=== PATIENT | male | born 1970 | race African-American/Black ===

== ENCOUNTER 2019-02-02 15:57 | Emergency (ER) | payer MEDICAID, SELFPAY ==
[~2019-02-02] VITALS: Ht 172.7 cm; Wt 72.0 kg
--- NOTE | 2019-02-02 16:00 | NUR ---
48 YR OLD MALE ARRIVED VIA EMS WITH C/O ABD PAIN. PT WITH HX OF ULCERS. "HAD SPICY FOOD FOR LUNCH TODAY" PT ARRIVES WITH IV IN RAC. PAIN 05/22.
[2019-02-02] MEDS ORDERED: FAMOTIDINE 20 MG/2 ML ONE (16:22)
[2019-02-02] MEDS ORDERED: MORPHINE SULFATE 4 MG/ML, 1ML ONE (16:22)
--- NOTE | 2019-02-02 16:29 | NUR ---
PT MEDICATED ORDERED. PT UPDATED ON POC. NO OTHER NEEDS EXPRESSED AT THIS TIME.
[2019-02-02] MEDS ORDERED: MORPHINE SULFATE 4 MG/ML, 1ML IVPush PRN (16:30)
[2019-02-02] MEDS ORDERED: SODIUM CHLORIDE FLUSH 10ML SYR IVF ONE (16:30)
[2019-02-02] MEDS ORDERED: FAMOTIDINE 20 MG/2 ML IVP ONE (16:30)
[2019-02-02 16:33] LABS: BASOPHILS # (AUTO) 0.03 x10^3/uL (0-0.1); BASOPHILS % (AUTO) 0 % (0-1); EOSINOPHILS # (AUTO) 0.03 x10^3/uL (0-0.4); EOSINOPHILS % (AUTO) 0 % (1-7); LYMPHOCYTES # (AUTO) 1.47 x10^3/uL (1-3.4); LYMPHOCYTES % (AUTO) 17 % (22-44); MD NO; MEAN CORPUSCULAR HEMOGLOBIN 29.9 pg (27.5-34.5); MEAN CORPUSCULAR HGB CONC 32.2 g/dL (33.2-36.2); MEAN CORPUSCULAR VOLUME 92.8 fL (81-97); MEAN PLATELET VOLUME 8.6 fL (7.4-10.4); MONOCYTES # (AUTO) 0.44 x10^3/uL (0.2-0.8); MONOCYTES % (AUTO) 5 % (2-9); NEUTROPHILS # (AUTO) 6.83 x10^3/uL (1.8-6.8); NEUTROPHILS % (AUTO) 78 % (42-75); PLATELET COUNT 244 x10^3/uL (130-400); RED BLOOD COUNT 5.09 x10^6/uL (4.38-5.82); RED CELL DISTRIBUTION WIDTH 15.7 % (9.4-14.8)
[2019-02-02 16:34] LABS: MICROSCOPIC AUTO
[2019-02-02 16:39] LABS: CULTURE INDICATED? NO
[2019-02-02 16:44] LABS: ALANINE AMINOTRANSFERASE 44 U/L (12-78); ALBUMIN 3.5 g/dL (3.4-5.0); ANION GAP 10 mmol/L (5-15); CALCIUM 9.1 mg/dL (8.5-10.1); CHLORIDE 109 mmol/L (98-107); CREATININE 1.07 mg/dL (0.7-1.3)
[2019-02-02 16:46] LABS: ALKALINE PHOSPHATASE 52 U/L (45-117); BILIRUBIN,TOTAL 0.5 mg/dL (0.2-1.0); TOTAL PROTEIN 7.4 g/dL (6.4-8.2)
--- NOTE | 2019-02-02 16:53 | NUR ---
PT USING URINAL PRN, PAIN DECREASED TO 6/10. NO OTHER NEEDS EXPRESSED AT THIS TIME.
[2019-02-02] MEDS ORDERED: SODIUM CHLORIDE 0.9% 1,000ML IVBOLUS ONE (17:00)
--- NOTE | 2019-02-02 17:14 | NUR ---
PT STATES "MY PAIN WENT DOWN TO A 6". NO ACUTE SIGNS OF DISTRESS. PT DENIES ANY NEEDS AT THIS TIME.
[2019-02-02 18:05] VITALS: BP 142/88
--- NOTE | 2019-02-02 18:12 | NUR ---
DR AGUAYO AT BEDSIDE TO BRETT PT
[2019-02-02] MEDS ORDERED: OMNIPAQUE 350 MG/ML, 100ML BOTTLE ONE (18:16)
== END 2019-02-02 18:49 | disposition home or self-care (01) ==
LOC: ED 16:57
DX: K59.00 Constipation, unspecified (principal); F17.200 Nicotine dependence, unspecified, uncomplicated
CPT/HCPCS: 36415; 74177; 80053; 81001; 83605; 83690; 85025; 93005; 96374; 96375; 99284; J2270; J3490; J7030; Q9967

== ENCOUNTER 2019-08-16 11:15 | Emergency (ER) | payer SELFPAY ==
[~2019-08-16] VITALS: Ht 172.7 cm; Wt 75.0 kg
[2019-08-16] MEDS ORDERED: SODIUM CHLORIDE FLUSH 10ML SYR IVF ONE (12:00)
[2019-08-16] MEDS ORDERED: SODIUM CHLORIDE 0.9% 1,000ML IVBOLUS ONE (12:00)
[2019-08-16 12:07] LABS: BASOPHILS # (AUTO) 0.05 x10^3/uL (0-0.1); BASOPHILS % (AUTO) 1 % (0-1); EOSINOPHILS # (AUTO) 0.07 x10^3/uL (0-0.4); EOSINOPHILS % (AUTO) 1 % (1-7); LYMPHOCYTES # (AUTO) 1.05 x10^3/uL (1-3.4); LYMPHOCYTES % (AUTO) 19 % (22-44); MD NO; MEAN CORPUSCULAR HGB CONC 32.5 g/dL (33.2-36.2); MEAN CORPUSCULAR VOLUME 92.3 fL (81-97); MEAN PLATELET VOLUME 8.3 fL (7.4-10.4); MONOCYTES # (AUTO) 0.25 x10^3/uL (0.2-0.8); MONOCYTES % (AUTO) 5 % (2-9); NEUTROPHILS # (AUTO) 4.11 x10^3/uL (1.8-6.8); NEUTROPHILS % (AUTO) 74 % (42-75); PLATELET COUNT 259 x10^3/uL (130-400); RED BLOOD COUNT 5.39 x10^6/uL (4.38-5.82); RED CELL DISTRIBUTION WIDTH 14.7 % (9.4-14.8)
--- NOTE | 2019-08-16 12:12 | NUR ---
IV INSERTED, LABS DRAWN, ULTRASOUND AT BEDSIDE.
[2019-08-16 12:19] LABS: ALANINE AMINOTRANSFERASE 33 U/L (12-78); ALBUMIN 3.3 g/dL (3.4-5.0); ANION GAP 6 mmol/L (5-15); CALCIUM 9.2 mg/dL (8.5-10.1); CHLORIDE 108 mmol/L (98-107); CREATININE 0.86 mg/dL (0.7-1.3)
[2019-08-16 12:21] LABS: ALKALINE PHOSPHATASE 64 U/L (45-117); BILIRUBIN,TOTAL 1.1 mg/dL (0.2-1.0); TOTAL PROTEIN 7.3 g/dL (6.4-8.2)
--- NOTE | 2019-08-16 12:51 | NUR ---
PT CONTINUES IN IMAGING. URINE COLLECTION EMPTY AT BEDSIDE. WILL REATTEMPT UPON PT RETURN TO ROOM, OR OFFER STRAIGHT CATH NECESSARY.
--- NOTE | 2019-08-16 12:54 | NUR ---
PT RETURNED FROM IMAGING AT THIS TIME. REFUSING STRAIGHT CATH. STATES "I'LL GET IT WHEN I GET IT" ABOUT URINE SAMPLE. PT EDUCATED ON NECESSITY OF URINE SAMPLE.
--- NOTE | 2019-08-16 13:24 | NUR ---
PT SLEEPING IN BED, AROUSES EASILY TO VERBAL STIMULI. REMINDED AGAIN OF NECESSITY OF URINE SAMPLE. PT DISAGREEABLE AND RUDE TO STAFF, REFUSING TO COLLECT SAMPLE AT THIS TIME. PT ONCE AGAIN OFFERED A STRAIGHT CATH, REFUSES VEHEMENTLY. PT ROLLED OVER, CLOSED EYES, AND IGNORING STAFF AT THIS TIME. CALL LIGHT IN REACH.
--- NOTE | 2019-08-16 13:44 | NUR ---
URINE SAMPLE COLLECTED AT BEDSIDE AND SENT.
[2019-08-16 13:51] LABS: CULTURE INDICATED? NO; MICROSCOPIC NOT IND
--- NOTE | 2019-08-16 13:55 | NUR ---
BEDSIDE REPORT RECEIVED FRON OLI DIAZ. PLAN OF CARE DISCUSSED. VSS AT THIS TIME. PATIENT SLEEPING, RESPIRATION EVEN AND UNLABORED.
[2019-08-16 14:37] VITALS: BP 115/55
== END 2019-08-16 14:39 | disposition home or self-care (01) ==
LOC: ED 12:32
DX: R10.31 Right lower quadrant pain (principal)
CPT/HCPCS: 36415; 74021; 76700; 80053; 81003; 83605; 83690; 85025; 99284; J7030

== ENCOUNTER 2019-08-27 11:04 | Emergency (ER) | payer SELFPAY ==
[~2019-08-27] VITALS: Ht 172.7 cm; Wt 67.6 kg
[2019-08-27 12:18] LABS: BASOPHILS # (AUTO) 0.07 x10^3/uL (0-0.1); BASOPHILS % (AUTO) 1 % (0-1); EOSINOPHILS % (AUTO) 3 % (1-7); LYMPHOCYTES # (AUTO) 1.34 x10^3/uL (1-3.4); LYMPHOCYTES % (AUTO) 23 % (22-44); MD NO; MEAN CORPUSCULAR HEMOGLOBIN 30.3 pg (27.5-34.5); MEAN CORPUSCULAR HGB CONC 32.3 g/dL (33.2-36.2); MEAN CORPUSCULAR VOLUME 93.8 fL (81-97); MEAN PLATELET VOLUME 8.6 fL (7.4-10.4); MONOCYTES # (AUTO) 0.34 x10^3/uL (0.2-0.8); MONOCYTES % (AUTO) 6 % (2-9); NEUTROPHILS # (AUTO) 3.96 x10^3/uL (1.8-6.8); NEUTROPHILS % (AUTO) 67 % (42-75); PLATELET COUNT 288 x10^3/uL (130-400); RED BLOOD COUNT 5.27 x10^6/uL (4.38-5.82)
[2019-08-27 12:30] LABS: ALBUMIN 3.5 g/dL (3.4-5.0); ANION GAP 4 mmol/L (5-15); CALCIUM 9.2 mg/dL (8.5-10.1); CHLORIDE 106 mmol/L (98-107)
--- NOTE | 2019-08-27 12:31 | NUR ---
TASK RN: PT AMBULATORY WITH STEADY GAIT TO ROOM AT THIS TIME.
--- NOTE | 2019-08-27 12:32 | NUR ---
TASK RN: 49 Y/O MALE PRESENTS TO ED WITH C/O ABDOMINAL PAIN. PER PT "I HAVE BELLY PAIN FOR MONTHS AND MONTHS AND MONTHS. I'VE HAD ME SOME TYPE OF BELLY SURGERY, LIKE APPENDECTOMY OR SOMETHING. I HAVEN'T BEEN VOMITING." PT PLACED ON CONT PULSE OX,NIBP. EDMD BEDSIDE. NO C/O N/V/D, TRAUMA, SYNCOPE, CP, SOB.
[2019-08-27 12:33] LABS: ALANINE AMINOTRANSFERASE 30 U/L (12-78); ALKALINE PHOSPHATASE 60 U/L (45-117); BILIRUBIN,TOTAL 1.2 mg/dL (0.2-1.0); CREATININE 0.93 mg/dL (0.7-1.3); TOTAL PROTEIN 7.9 g/dL (6.4-8.2)
--- NOTE | 2019-08-27 12:53 | NUR ---
LATE ENTRY FOR 1240: PT HAS WRISTBAND ON FROM [facility] AND PT STATES "I WAS AT [facility] ABOUT AN HOUR AGO. THEY DIDN'T TELL ME ANYTHING." RELAYED TO DR. TOBAR THAT PT WAS JUST DISCHARGED FROM [facility]. REQUESTING RECORDS. JOAQUIN. PT RESTING ON [facility].
--- NOTE | 2019-08-27 13:01 | NUR ---
PT EDUCATED REGARDING NEEDING A URINE SAMPLE. PT STATES "I DON'T HAVE TO GO TO THE BATHROOM NOW." PT ALSO EDUCATED REGARDING URINE SAMPLE POLICY. NADN. NO NEEDS REQUESTED AT THIS TIME.
--- NOTE | 2019-08-27 13:10 | NUR ---
TASK RN: BEDSIDE REPORT TO OLI HARMAN.
--- NOTE | 2019-08-27 13:12 | NUR ---
SBAR RPT REC'D FROM OLI GARCIA AND PT CARE ASSUMED. PT ON SUPINE ON [facility], AWARE OF NEED TO PROVIDE URINE SAMPLE. CALL LIGHT W/I REACH
--- NOTE | 2019-08-27 13:29 | NUR ---
PT OOB AMBULATED TO BATHROOM UPRIGHT STEADY GAIT
[2019-08-27 13:30] VITALS: BP 125/91
--- NOTE | 2019-08-27 13:36 | NUR ---
PT RTD TO ROOM W/O INCIDENT. URINE COLLECTED AND SENT TO LAB.
--- NOTE | 2019-08-27 13:39 | NUR ---
REQUESTED PT TO REMOVE HIS CLOTHES BUT CAN LEAVE UNDERWEAR ON. PT REFUSES.
[2019-08-27 14:05] LABS: MICROSCOPIC NOT IND
[2019-08-27 14:08] LABS: CULTURE INDICATED? NO
--- NOTE | 2019-08-27 14:48 | NUR ---
TASK RN: PT RESTING ON GURNEY. REFUSES VITAL SIGNS AT THIS TIME. JOAQUIN
--- NOTE | 2019-08-27 15:01 | NUR ---
TASK RN: BEDSIDE REPORT TO OLI HARMAN.
--- NOTE | 2019-08-27 15:20 | NUR ---
Patient/Caregiver given discharge instructions and they have confirmed that they understand the instructions. Patient ambulatory with steady gait.
== END 2019-08-27 16:14 | disposition home or self-care (01) ==
LOC: ED 15:10
DX: K29.00 Acute gastritis without bleeding (principal)
CPT/HCPCS: 36415; 80053; 81003; 83690; 85025; 99283

== ENCOUNTER 2019-10-27 16:27 | Emergency (ER) | payer MEDICAID ==
[~2019-10-27] VITALS: Ht 172.7 cm; Wt 70.0 kg
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
--- NOTE | 2019-10-27 16:40 | NUR ---
REPORT TO GLORY BAIRD
[2019-10-27 17:03] LABS: BASOPHILS # (AUTO) 0.04 x10^3/uL (0-0.1); BASOPHILS % (AUTO) 1 % (0-1); EOSINOPHILS # (AUTO) 0.05 x10^3/uL (0-0.4); EOSINOPHILS % (AUTO) 1 % (1-7); LYMPHOCYTES # (AUTO) 1.12 x10^3/uL (1-3.4); LYMPHOCYTES % (AUTO) 16 % (22-44); MD NO; MEAN CORPUSCULAR HEMOGLOBIN 29.9 pg (27.5-34.5); MEAN CORPUSCULAR VOLUME 90.6 fL (81-97); MEAN PLATELET VOLUME 8.6 fL (7.4-10.4); MONOCYTES # (AUTO) 0.35 x10^3/uL (0.2-0.8); MONOCYTES % (AUTO) 5 % (2-9); NEUTROPHILS # (AUTO) 5.36 x10^3/uL (1.8-6.8); NEUTROPHILS % (AUTO) 78 % (42-75); PLATELET COUNT 244 x10^3/uL (130-400); RED BLOOD COUNT 5.11 x10^6/uL (4.38-5.82)
[2019-10-27 17:10] LABS: ALBUMIN 3.6 g/dL (3.4-5.0); ANION GAP 8 mmol/L (5-15); CALCIUM 8.8 mg/dL (8.5-10.1); CHLORIDE 106 mmol/L (98-107)
[2019-10-27 17:11] LABS: CREATININE 1.05 mg/dL (0.7-1.3)
--- NOTE | 2019-10-27 17:29 | NUR ---
PT RESTING ON [employer] W/ CALL LIGHT IN REACH. REPORTS CP 6/10 AND PARANOIA. VS STABLE. NADN. WILL CONTINUE TO MONITOR.
--- NOTE | 2019-10-27 17:56 | NUR ---
PT GIVEN URINAL.
--- NOTE | 2019-10-27 18:03 | NUR ---
URINE COLLECTED AND SENT TO LAB.
[2019-10-27 18:30] LABS: AMPHETAMINE SCREEN, URINE Positive (Negative); BARBITURATE SCREEN, URINE Negative (Negative); BENZODIAZEPINE SCREEN, URINE Negative (Negative); CANNABINOID SCREEN, URINE Negative (Negative); COCAINE SCREEN, URINE Negative (Negative); METHADONE SCREEN, URINE Negative (Negative); OPIATE SCREEN, URINE Negative (Negative)
--- NOTE | 2019-10-27 18:46 | NUR ---
ALL TESTS RESULTED. PT IS UP FOR RECHECK AT THIS TIME.
--- NOTE | 2019-10-27 19:07 | NUR ---
Pt dc'd to self care. Pt alert, oriented and ambulatory at time of d/c. VSS. Pt educated on drug cessation, fluid intake, and S/Sx to return/follow-up. Pt BRANDEN.
[2019-10-27 19:09] VITALS: BP 126/84
== END 2019-10-27 19:13 | disposition home or self-care (01) ==
LOC: ED 17:02
DX: F15.10 Other stimulant abuse, uncomplicated (principal); F41.9 Anxiety disorder, unspecified; R00.0 Tachycardia, unspecified; I49.3 Ventricular premature depolarization; F22 Delusional disorders; F17.200 Nicotine dependence, unspecified, uncomplicated
CPT/HCPCS: 36415; 70450; 71045; 80048; 80307; 82040; 85025; 93005; 99285

== ENCOUNTER 2019-10-29 05:57 | Emergency (ER) | payer MEDICAID ==
[~2019-10-29] VITALS: Ht 172.7 cm; Wt 77.0 kg
[2019-10-29 06:00] VITALS: BP 109/70
--- NOTE | 2019-10-29 06:33 | NUR ---
Patient spoke with physician, after speaking with patient, patient had few if any actual medical complaints. Patient report to physician that he had brown urine. RN returned to bedside, and after a signficant amount of asking the patient to provide urine sample he eventually did. Physician was shown regular colored urine that was clear and not cloud.
== END 2019-10-29 06:59 | disposition home or self-care (01) ==
LOC: ED 06:39
DX: F12.10 Cannabis abuse, uncomplicated (principal); F15.10 Other stimulant abuse, uncomplicated; F17.210 Nicotine dependence, cigarettes, uncomplicated; F41.9 Anxiety disorder, unspecified
CPT/HCPCS: 99283; 99406

== ENCOUNTER 2019-11-01 21:00 | Emergency (ER) | payer MEDICAID ==
[~2019-11-01] VITALS: Ht 172.7 cm; Wt 74.0 kg
[2019-11-01 21:04] VITALS: BP 103/62
--- NOTE | 2019-11-01 21:18 | NUR ---
THIS IS A 49Y M BIB EMS FROM WORK FOR ABD PAIN. PER PT THIS HAPPENS EVERY FEW MONTHS. PT ARRIVED ASKING FOR PAIN MEDS, BEFORE ASSESSMENT COMPLETE PT WAS SLEEPING ON GURNEY. PT DENIES FEVER CHILLS, N/V/D. PT CONNECTED TO MONITORING, AWAITING ORDERS AT THIS TIME.
[2019-11-01 21:52] LABS: MEAN CORPUSCULAR HEMOGLOBIN 29.9 pg (27.5-34.5); MEAN CORPUSCULAR HGB CONC 32.5 g/dL (33.2-36.2); MEAN PLATELET VOLUME 9.1 fL (7.4-10.4); PLATELET COUNT 220 x10^3/uL (130-400); RED BLOOD COUNT 4.61 x10^6/uL (4.38-5.82); RED CELL DISTRIBUTION WIDTH 14.5 % (9.4-14.8)
[2019-11-01 21:59] LABS: ALANINE AMINOTRANSFERASE 43 U/L (12-78); ANION GAP 4 mmol/L (5-15); CALCIUM 8.3 mg/dL (8.5-10.1); CHLORIDE 111 mmol/L (98-107); CREATININE 0.84 mg/dL (0.7-1.3)
--- NOTE | 2019-11-01 22:01 | NUR ---
PT RESTING ON GURNEY ASLEEP, PT INFORMED OF NEED FOR URINE SAMPLE, PER PT WANTS MEDS FOR PAIN. PT ASLEEP BEFORE RN LEFT ROOM TO UPDATE MD. MD TO BE UPDATED OF PT REQUEST
--- NOTE | 2019-11-01 22:04 | NUR ---
PT ROOM AIR SAT 88% WHILE ASLEEP, ATTEMPTED TO PLACE 2L NC ON PT, PT REFUSED, MD TO BE UPDATED
--- NOTE | 2019-11-01 22:07 | NUR ---
MD UPDATED NO ADDITIONAL ORDERS AT THIS TIME.
[2019-11-01 22:11] LABS: MD YES
[2019-11-01 22:14] LABS: BASOS#(MANUAL) 0.05 x10^3/uL (0-0.1); BASOS% (MANUAL) 1 % (0-1); LYMPH#(MANUAL) 1.15 x10^3/uL (1-3.4); LYMPHS% (MANUAL) 23 % (22-44); MONOS% (MANUAL) 6 % (2-9)
[2019-11-01 22:15] LABS: <PLATELET ESTIMATE> ADEQUATE; <PLT MORPHOLOGY> NORMAL PLT MORPH; <RBC MORPHOLOGY> NORMAL; EOS#(MANUAL) 0.25 x10^3/uL (0.0-0.4); EOS% (MANUAL) 5 % (1-7); SEG#(MANUAL) 3.25 x10^3/uL (1.8-6.8); SEGS% (MANUAL) 65 % (42-75)
[2019-11-01 22:20] LABS: ALKALINE PHOSPHATASE 53 U/L (45-117); BILIRUBIN,TOTAL 0.7 mg/dL (0.2-1.0); TOTAL PROTEIN 6.5 g/dL (6.4-8.2)
== END 2019-11-01 23:20 | disposition home or self-care (01) ==
LOC: ED 23:14
DX: R10.0 Acute abdomen (principal); F17.200 Nicotine dependence, unspecified, uncomplicated; Z90.49 Acquired absence of other specified parts of digestive tract
CPT/HCPCS: 36415; 74021; 80053; 83690; 85025; 99284

== ENCOUNTER 2019-11-14 22:52 | Emergency (ER) | payer MEDICAID ==
[~2019-11-14] VITALS: Ht 172.7 cm; Wt 75.0 kg
--- NOTE | 2019-11-14 23:10 | NUR ---
THIS IS A 49 YO MALE BIB [facility] FOR LEFT SIDED CHEST PAIN STARTING AT 2200 AFTER RECENT METH USE AROUND 1900. PER [facility], PATIENT STATES IT WAS SUDDEN ONSET WHILE WALKING, RATED 7/10, NO RADIATION, NO DIAPHORESIS, STATED SOB AND NASAL CONGESTION. LUNGS CLEAR IN ALL LOBES. PER [facility], NO MEDICAL HX, NO MEDS EN ROUTE, PATIENT HAD STATED PAIN WAS RESOLVING EN ROUTE, PIV PLACED BY [facility]. BGL WITH [facility] 186. ALL MONITORING IN PLACE, NSR ON BANQUET BARTENDER, VSS, NAD AT THIS TIME, CALL LIGHT I NREACH
[2019-11-14] MEDS ORDERED: ASPIRIN 81 MG TABLET CHEW ONE (23:15)
[2019-11-14] MEDS ORDERED: ASPIRIN 81 MG TABLET CHEW PO ONE (23:30)
[2019-11-14 23:37] LABS: BASOPHILS # (AUTO) 0.05 x10^3/uL (0-0.1); BASOPHILS % (AUTO) 1 % (0-1); EOSINOPHILS # (AUTO) 0.12 x10^3/uL (0-0.4); EOSINOPHILS % (AUTO) 2 % (1-7); LYMPHOCYTES % (AUTO) 19 % (22-44); MD NO; MEAN CORPUSCULAR HEMOGLOBIN 29.6 pg (27.5-34.5); MEAN CORPUSCULAR HGB CONC 32.7 g/dL (33.2-36.2); MEAN CORPUSCULAR VOLUME 90.5 fL (81-97); MEAN PLATELET VOLUME 8.2 fL (7.4-10.4); MONOCYTES # (AUTO) 0.34 x10^3/uL (0.2-0.8); MONOCYTES % (AUTO) 6 % (2-9); NEUTROPHILS # (AUTO) 4.27 x10^3/uL (1.8-6.8); NEUTROPHILS % (AUTO) 73 % (42-75); PLATELET COUNT 296 x10^3/uL (130-400); RED BLOOD COUNT 5.11 x10^6/uL (4.38-5.82); RED CELL DISTRIBUTION WIDTH 14.5 % (9.4-14.8)
[2019-11-14 23:45] LABS: ALBUMIN 3.4 g/dL (3.4-5.0); ANION GAP 8 mmol/L (5-15); CALCIUM 9.1 mg/dL (8.5-10.1); CHLORIDE 107 mmol/L (98-107); CREATININE 1.09 mg/dL (0.7-1.3)
[2019-11-14 23:49] LABS: TROPONIN I < 0.015 ng/mL (0.000-0.045)
--- NOTE | 2019-11-15 | NUR ---
PATIENT RESTING ON GURNEY, RESPIRATIONS EVEN AND UNLABORED. VSS, NAD, CALL LIGHT IN REACH
[2019-11-15 00:08] VITALS: BP 93/47
--- NOTE | 2019-11-15 00:38 | NUR ---
Patient/Caregiver given discharge instructions and they have confirmed that they understand the instructions. Patient ambulatory with steady gait.
== END 2019-11-15 00:43 | disposition home or self-care (01) ==
LOC: ED 23:59
DX: R07.89 Other chest pain (principal); R06.02 Shortness of breath; Z90.89 Acquired absence of other organs; F17.200 Nicotine dependence, unspecified, uncomplicated
CPT/HCPCS: 36415; 71045; 80048; 82040; 84484; 85025; 93005; 99284; 99285

== ENCOUNTER 2019-11-16 01:33 | Emergency (ER) | payer MEDICAID ==
[~2019-11-16] VITALS: Ht 175.3 cm; Wt 73.0 kg
[2019-11-16 01:55] VITALS: BP 144/77
[2019-11-16 03:22] LABS: MEAN CORPUSCULAR HEMOGLOBIN 29.9 pg (27.5-34.5); MEAN CORPUSCULAR HGB CONC 32.6 g/dL (33.2-36.2); MEAN CORPUSCULAR VOLUME 91.8 fL (81-97); PLATELET COUNT 271 x10^3/uL (130-400); RED BLOOD COUNT 5.21 x10^6/uL (4.38-5.82); RED CELL DISTRIBUTION WIDTH 14.8 % (9.4-14.8)
[2019-11-16 03:29] LABS: ALBUMIN 3.7 g/dL (3.4-5.0); ANION GAP 6 mmol/L (5-15); CALCIUM 8.8 mg/dL (8.5-10.1); CHLORIDE 108 mmol/L (98-107); CREATININE 0.88 mg/dL (0.7-1.3)
[2019-11-16 03:32] LABS: BASOPHILS # (AUTO) 0.05 x10^3/uL (0-0.1); BASOPHILS % (AUTO) 1 % (0-1); EOSINOPHILS # (AUTO) 0.16 x10^3/uL (0-0.4); EOSINOPHILS % (AUTO) 3 % (1-7); LYMPHOCYTES # (AUTO) 1.52 x10^3/uL (1-3.4); LYMPHOCYTES % (AUTO) 25 % (22-44); MD SCAN; MONOCYTES # (AUTO) 0.46 x10^3/uL (0.2-0.8); MONOCYTES % (AUTO) 8 % (2-9); NEUTROPHILS # (AUTO) 3.94 x10^3/uL (1.8-6.8); NEUTROPHILS % (AUTO) 64 % (42-75)
[2019-11-16 03:33] LABS: TROPONIN I < 0.015 ng/mL (0.000-0.045)
--- NOTE | 2019-11-16 03:55 | NUR ---
PT TO ROOM 19 IN WHEELCHAIR, HOLDING UNLIT CIGARETTE
[2019-11-16] MEDS ORDERED: ACETAMINOPHEN 325 MG TABLET ONE (05:36)
[2019-11-16] MEDS ORDERED: ACETAMINOPHEN 325 MG TABLET PO ONE (06:00)
== END 2019-11-16 05:43 | disposition home or self-care (01) ==
LOC: ED 02:54
DX: R07.89 Other chest pain (principal); R00.2 Palpitations; Z90.89 Acquired absence of other organs
CPT/HCPCS: 36415; 71045; 80048; 82040; 84484; 85025; 93005; 99285

== ENCOUNTER 2019-11-17 20:48 | Emergency (ER) | payer MEDICAID ==
[~2019-11-17] VITALS: Ht 172.7 cm; Wt 65.0 kg
[2019-11-17 20:51] VITALS: BP 105/67
--- NOTE | 2019-11-17 21:02 | NUR ---
pt stated he wanted to leave, encouraged to stay, given a bus pass for safe discharge, eloped out ambulance bay
== END 2019-11-17 22:04 | disposition left against medical advice (07) ==
LOC: ED 22:00
DX: Z53.21 Procedure and treatment not carried out due to patient leaving prior to being seen by health care provider (principal)

== ENCOUNTER 2019-11-30 21:12 | Emergency (ER) | payer MEDICAID ==
[~2019-11-30] VITALS: Ht 172.7 cm; Wt 73.0 kg
--- NOTE | 2019-11-30 21:21 | NUR ---
THIS IS A 49Y M BIB EMS FROM [facility] FOR ABD PAIN/ BACK PAIN. PT PRESENTS TO ER A/O4 NADN. SPEAKING IN FULL SENTENCES. PT STS WAS PRESCRIBED "SOME STOMACH MED FROM A BOB." BUT HAS NOT TAKEN/ PICKED UP THE MEDICATION. PT ALSO STS "MAN YOU ALL NURSE DOCTORS LOOK DIFFERENT DON'T YOU GUYS KNOW ME HERE." PT APPEARS VERY COMFORTABLE UPON ARRIVAL TO ER. PT CONNECTED TO MONITORING, NADN.
[2019-11-30] MEDS ORDERED: MAALOX/HYOSCYAMINE/LIDOCAINE 45 ML BTL ONE (21:28)
[2019-11-30] MEDS ORDERED: MAALOX/HYOSCYAMINE/LIDOCAINE 45 ML BTL PO ONE (21:30)
--- NOTE | 2019-11-30 21:58 | NUR ---
PT RESTING ON GURNEY EYES CLOSED, EDUCATED ON NEED FOR URINE SAMPLE, PT PROVIDES MINIMAL EYE CONTACT.
[2019-11-30 22:07] LABS: ALANINE AMINOTRANSFERASE 86 U/L (12-78); ALBUMIN 3.3 g/dL (3.4-5.0); ANION GAP 6 mmol/L (5-15); CHLORIDE 109 mmol/L (98-107)
[2019-11-30 22:10] VITALS: BP 101/66
[2019-11-30 22:10] LABS: ALKALINE PHOSPHATASE 58 U/L (45-117); BILIRUBIN,TOTAL 0.4 mg/dL (0.2-1.0); TOTAL PROTEIN 7.2 g/dL (6.4-8.2)
--- NOTE | 2019-11-30 22:21 | NUR ---
URINE SENT TO LAB
[2019-11-30 22:35] LABS: MD YES; MEAN CORPUSCULAR HEMOGLOBIN 29.4 pg (27.5-34.5); MEAN CORPUSCULAR HGB CONC 32.1 g/dL (33.2-36.2); MEAN CORPUSCULAR VOLUME 91.6 fL (81-97); MEAN PLATELET VOLUME 8.9 fL (7.4-10.4); PLATELET COUNT 234 x10^3/uL (130-400); RED BLOOD COUNT 4.91 x10^6/uL (4.38-5.82)
[2019-11-30 22:41] LABS: MICROSCOPIC NOT IND
[2019-11-30 22:46] LABS: EOS#(MANUAL) 0.39 x10^3/uL (0.0-0.4); EOS% (MANUAL) 6 % (1-7); LYMPH#(MANUAL) 1.43 x10^3/uL (1-3.4); LYMPHS% (MANUAL) 22 % (22-44); MONOS#(MANUAL) 0.33 x10^3/uL (0.3-2.7); MONOS% (MANUAL) 5 % (2-9); REACTIVE LYMPHS # (MANUAL) 0.98 x10^3/uL (0-0); REACTIVE LYMPHS % (MANUAL) 15 % (0-0); SEG#(MANUAL) 3.25 x10^3/uL (1.8-6.8); SEGS% (MANUAL) 50 % (42-75)
[2019-11-30 22:47] LABS: OTHER CELLS # (MANUAL) 0.13 x10^3/uL (0-0); OTHER CELLS % (MANUAL) 2 % (0-0)
[2019-11-30 22:52] LABS: CULTURE INDICATED? NO
[2019-11-30 22:55] LABS: <PLATELET ESTIMATE> ADEQUATE; <PLT MORPHOLOGY> NORMAL PLT MORPH; <RBC MORPHOLOGY> NORMAL
== END 2019-11-30 23:23 | disposition home or self-care (01) ==
LOC: ED 21:41
DX: K29.00 Acute gastritis without bleeding (principal); R10.13 Epigastric pain; R94.31 Abnormal electrocardiogram [ECG] [EKG]
CPT/HCPCS: 36415; 80053; 81003; 83690; 85025; 93005; 99284

== ENCOUNTER 2020-01-01 07:47 | Emergency (ER) | payer MEDICAID ==
[~2020-01-01] VITALS: Ht 172.7 cm; Wt 76.0 kg
[2020-01-01 07:56] VITALS: BP 125/79
--- NOTE | 2020-01-01 07:59 | NUR ---
ANGEL YBARRA, PT WITH C/O CP STARTING 0700 THIS AM, PT STATES HE SMOKED METH YESTERDAY AND HAD SOME "BLUNTS TODAY". PT DENIES SOB/COUGH/FEVER OR BODY ACHES PT PLACED TO CARD MONITOR, CONT PULSE OX, BP
[2020-01-01 08:23] LABS: BASOPHILS # (AUTO) 0.09 x10^3/uL (0-0.1); BASOPHILS % (AUTO) 1 % (0-1); EOSINOPHILS # (AUTO) 0.02 x10^3/uL (0-0.4); EOSINOPHILS % (AUTO) 0 % (1-7); LYMPHOCYTES # (AUTO) 1.35 x10^3/uL (1-3.4); LYMPHOCYTES % (AUTO) 15 % (22-44); MD NO; MEAN PLATELET VOLUME 8.6 fL (7.4-10.4); MONOCYTES # (AUTO) 0.51 x10^3/uL (0.2-0.8); MONOCYTES % (AUTO) 6 % (2-9); NEUTROPHILS # (AUTO) 6.96 x10^3/uL (1.8-6.8); NEUTROPHILS % (AUTO) 78 % (42-75); PLATELET COUNT 252 x10^3/uL (130-400); RED BLOOD COUNT 5.06 x10^6/uL (4.38-5.82); RED CELL DISTRIBUTION WIDTH 13.8 % (9.4-14.8)
[2020-01-01] MEDS ORDERED: SODIUM CHLORIDE FLUSH 10ML SYR IVF ONE (08:30)
[2020-01-01] MEDS ORDERED: SODIUM CHLORIDE 0.9% 1,000ML IVBOLUS ONE (08:30)
[2020-01-01 08:37] LABS: ALBUMIN 3.6 g/dL (3.4-5.0); ANION GAP 8 mmol/L (5-15); CALCIUM 9.2 mg/dL (8.5-10.1); CHLORIDE 106 mmol/L (98-107); CREATININE 1.03 mg/dL (0.7-1.3)
[2020-01-01 08:40] LABS: TROPONIN I < 0.015 ng/mL (0.000-0.045)
== END 2020-01-01 09:25 | disposition home or self-care (01) ==
LOC: ED 07:58
DX: R07.89 Other chest pain (principal); F15.10 Other stimulant abuse, uncomplicated; R00.0 Tachycardia, unspecified; Z72.9 Problem related to lifestyle, unspecified
CPT/HCPCS: 36415; 71045; 80048; 82040; 84484; 85025; 93005; 99285; J7030

== ENCOUNTER 2020-01-07 14:49 | Emergency (ER) | payer MEDICAID ==
--- NOTE | 2020-01-07 14:58 | NUR ---
CALLED FOR PT IN LOBBY. PT WAS NOT THERE
--- NOTE | 2020-01-07 15:08 | NUR ---
CALLED FOR TRIAGE, NOT IN LOBBY @[phone].
--- NOTE | 2020-01-07 15:14 | NUR ---
CALLED FOR PT IN LOBBY. PT WAS NOT THERE
== END 2020-01-07 15:20 | disposition left against medical advice (07) ==
LOC: ED 15:10
DX: F41.9 Anxiety disorder, unspecified (principal); Z53.21 Procedure and treatment not carried out due to patient leaving prior to being seen by health care provider

== ENCOUNTER 2020-01-09 00:23 | Emergency (ER) | payer MEDICAID ==
[~2020-01-09] VITALS: Ht 172.7 cm; Wt 70.0 kg
[2020-01-09 00:24] VITALS: BP 132/72
[2020-01-09] MEDS ORDERED: BUPR-173 PO (00:31)
--- NOTE | 2020-01-09 00:36 | NUR ---
WENT TO ROOM WITH PA FOR ASSESSMENT. PT NOW DENYING SI AT THIS TIME TO PA. SAYS "SOMEONE NEED TO MAKE ME TAKE MY MEDS". VSS. CALL LIGHT IN REACH
--- NOTE | 2020-01-09 00:48 | NUR ---
REPORT FROM MINDA BAIRD. DISCUSSED DISCHARGE WITH PT, PT NOT ENGAGING IN DC EDUCATION.
== END 2020-01-09 00:59 | disposition home or self-care (01) ==
LOC: ED 00:49
DX: F41.1 Generalized anxiety disorder (principal); F10.10 Alcohol abuse, uncomplicated; F15.10 Other stimulant abuse, uncomplicated; Z91.19 Patient's noncompliance with other medical treatment and regimen; Z72.9 Problem related to lifestyle, unspecified; F17.210 Nicotine dependence, cigarettes, uncomplicated; Z90.49 Acquired absence of other specified parts of digestive tract; Y90.9 Presence of alcohol in blood, level not specified
CPT/HCPCS: 99283; 99406

== ENCOUNTER 2020-01-10 11:05 | Emergency (ER) | payer MEDICAID ==
[~2020-01-10] VITALS: Ht 172.7 cm; Wt 70.0 kg
[~2020-01-10 11:05] MED LIST: BUPR-173 PO
--- NOTE | 2020-01-10 11:25 | NUR ---
Pt changed into gown, resting on gurney, denies additional needs, call light within reach, skin WNL warm and dry, VSS, WCTM.
[2020-01-10] MEDS ORDERED: SODIUM CHLORIDE FLUSH 10ML SYR IVF ONE (11:30)
[2020-01-10] MEDS ORDERED: ONDANSETRON 2MG/ML, 2ML IVPush ONE (11:30)
[2020-01-10] MEDS ORDERED: HYDROmorphone 2 MG/ML, 1ML IVPush PRN (11:30)
[2020-01-10] MEDS ORDERED: METOCLOPRAMIDE 5 MG/ML, 2ML ONE (11:34)
[2020-01-10] MEDS ORDERED: HYDROmorphone 2 MG/ML, 1ML ONE (11:35)
[2020-01-10] MEDS ORDERED: METOCLOPRAMIDE 5 MG/ML, 2ML IVPush ONE (12:00)
--- NOTE | 2020-01-10 12:11 | NUR ---
Report given to BROOKE BAIRD, pt care transferred at this time.
[2020-01-10 12:15] LABS: ALANINE AMINOTRANSFERASE 37 U/L (12-78); ALBUMIN 3.4 g/dL (3.4-5.0); ANION GAP 8 mmol/L (5-15); CHLORIDE 108 mmol/L (98-107); CREATININE 1.04 mg/dL (0.7-1.3)
[2020-01-10 12:17] LABS: ALKALINE PHOSPHATASE 64 U/L (45-117); BILIRUBIN,TOTAL 0.8 mg/dL (0.2-1.0); TOTAL PROTEIN 7.5 g/dL (6.4-8.2)
[2020-01-10 12:20] LABS: BASOPHILS # (AUTO) 0.02 x10^3/uL (0-0.1); BASOPHILS % (AUTO) 0 % (0-1); EOSINOPHILS # (AUTO) 0.05 x10^3/uL (0-0.4); EOSINOPHILS % (AUTO) 1 % (1-7); LYMPHOCYTES # (AUTO) 1.01 x10^3/uL (1-3.4); LYMPHOCYTES % (AUTO) 13 % (22-44); MD NO; MEAN CORPUSCULAR HEMOGLOBIN 29.7 pg (27.5-34.5); MEAN CORPUSCULAR HGB CONC 32.4 g/dL (33.2-36.2); MEAN CORPUSCULAR VOLUME 91.7 fL (81-97); MEAN PLATELET VOLUME 9.1 fL (7.4-10.4); MONOCYTES # (AUTO) 0.33 x10^3/uL (0.2-0.8); MONOCYTES % (AUTO) 4 % (2-9); NEUTROPHILS % (AUTO) 82 % (42-75); PLATELET COUNT 247 x10^3/uL (130-400); RED BLOOD COUNT 5.23 x10^6/uL (4.38-5.82); RED CELL DISTRIBUTION WIDTH 13.8 % (9.4-14.8)
--- NOTE | 2020-01-10 12:43 | NUR ---
PT TO CT
[2020-01-10] MEDS ORDERED: OMNIPAQUE 350 MG/ML, 100ML BOTTLE ONE (12:51)
--- NOTE | 2020-01-10 13:10 | NUR ---
PT ABLE TO PRODUCE A URINE SAMPLE. URINE WALKED TO LAB.
[2020-01-10 13:32] LABS: MICROSCOPIC NOT IND
[2020-01-10 13:35] LABS: CULTURE INDICATED? NO
--- NOTE | 2020-01-10 13:40 | NUR ---
PT UP FOR RECHECK, ALL TESTS RESULTED
[2020-01-10 14:29] VITALS: BP 104/64
== END 2020-01-10 14:31 | disposition home or self-care (01) ==
LOC: ED 11:26
DX: R10.9 Unspecified abdominal pain (principal); R06.02 Shortness of breath; Z90.89 Acquired absence of other organs
CPT/HCPCS: 36415; 74177; 80053; 81003; 83690; 85025; 93005; 96374; 96375; 99285; J1170; J2765; Q9967

== ENCOUNTER 2020-03-08 10:04 | Observation (INO) | payer MEDICAID ==
[~2020-03-08] VITALS: Ht 172.7 cm; Wt 68.1 kg
--- NOTE | 2020-03-08 10:28 | NUR ---
PT C/O INTERMITTENT CP SINCE 9 AM WORSE WITH PALPATION. PT DENES COUGH OR INJUSRY TO THE AREA. PT ON MONITOR AND ASA TO BE GIVEN. WAITING FOR FURTHER ORDERS.
[2020-03-08] MEDS ORDERED: NITROGLYCERIN OINT 2%, 1GM TP ONE (10:30)
[2020-03-08] MEDS ORDERED: ASPIRIN 81 MG TABLET CHEW PO ONE (10:30)
[2020-03-08] MEDS ORDERED: SODIUM CHLORIDE FLUSH 10ML SYR IVF ONE (10:30)
--- NOTE | 2020-03-08 10:44 | NUR ---
PT'S ORIGINAL EKG SHOWED JUNCTIONAL RHYTHM BUT ACCORDING TO LIYA IT IS NSR. DR. HUDSON AWARE AND EKG BEING REPEATED.
[2020-03-08 10:50] LABS: BASOPHILS # (AUTO) 0.08 x10^3/uL (0-0.1); BASOPHILS % (AUTO) 1 % (0-1); EOSINOPHILS # (AUTO) 0.18 x10^3/uL (0-0.4); EOSINOPHILS % (AUTO) 3 % (1-7); LYMPHOCYTES # (AUTO) 1.75 x10^3/uL (1-3.4); LYMPHOCYTES % (AUTO) 26 % (22-44); MD NO; MEAN CORPUSCULAR HEMOGLOBIN 29.7 pg (27.5-34.5); MEAN CORPUSCULAR HGB CONC 32.5 g/dL (33.2-36.2); MEAN CORPUSCULAR VOLUME 91.5 fL (81-97); MEAN PLATELET VOLUME 8.5 fL (7.4-10.4); MONOCYTES % (AUTO) 4 % (2-9); NEUTROPHILS # (AUTO) 4.49 x10^3/uL (1.8-6.8); NEUTROPHILS % (AUTO) 66 % (42-75); PLATELET COUNT 233 x10^3/uL (130-400); RED BLOOD COUNT 4.58 x10^6/uL (4.38-5.82); RED CELL DISTRIBUTION WIDTH 14.4 % (9.4-14.8)
[2020-03-08] MEDS ORDERED: ASPIRIN 81 MG TABLET CHEW ONE (10:54)
[2020-03-08 11:02] LABS: ALBUMIN 3.1 g/dL (3.4-5.0); ANION GAP 4 mmol/L (5-15); CHLORIDE 110 mmol/L (98-107)
[2020-03-08 11:07] LABS: ALANINE AMINOTRANSFERASE 31 U/L (12-78); ALKALINE PHOSPHATASE 61 U/L (45-117); BILIRUBIN,TOTAL 0.3 mg/dL (0.2-1.0); CREATININE 0.94 mg/dL (0.7-1.3); TOTAL PROTEIN 6.6 g/dL (6.4-8.2); TROPONIN I < 0.015 ng/mL (0.000-0.045)
--- NOTE | 2020-03-08 11:15 | NUR ---
CHART UP FOR MD RECHECK.
--- NOTE | 2020-03-08 11:29 | NUR ---
CHART UP FOR MD RECHECK. PT RESTING IN NAD.
[2020-03-08 13:34] VITALS: BP 117/80
[2020-03-08] MEDS ORDERED: ZOLPIDEM 5MG TABLET PO PRN (17:00)
[2020-03-08] MEDS ORDERED: NITROGLYCERIN 0.4 MG BOTTLE (25 TABS) SL PRN (17:00)
[2020-03-08] MEDS ORDERED: ACETAMINOPHEN 325 MG TABLET PO PRN (17:00)
[2020-03-08] MEDS ORDERED: ENOXAPARIN 40 MG/0.4 ML SQ SCH (17:00)
[2020-03-08] MEDS ORDERED: ONDANSETRON ODT 4 MG PO PRN (17:00)
[2020-03-08] MEDS ORDERED: POLYETHYLENE GLYCOL 17 GM PACKET PO PRN (17:00)
[2020-03-08] MEDS ORDERED: BISACODYL 10 MG SUPP PR PRN (17:00)
[2020-03-08] MEDS ORDERED: NICOTINE 21 MG/24 HR PATCH.TD24 TD SCH (17:00)
[2020-03-08] MEDS ORDERED: hydrALAzine 20 MG/ML, 1ML IVPush PRN (17:00)
[2020-03-08 17:13] LABS: HCT (SEDRATE) 43.4 % (39.2-51.8)
[2020-03-08 17:27] LABS: FREE T4 (FREE THYROXINE) 0.97 ng/dL (0.76-1.46); TROPONIN I < 0.015 ng/mL (0.000-0.045)
[2020-03-08 20:12] VITALS: BP 129/85
[2020-03-08] MEDS: FAMOTIDINE 20 MG TABLET PO SCH (22:04)
[2020-03-08 22:45] LABS: TROPONIN I < 0.015 ng/mL (0.000-0.045)
[2020-03-09 00:14] VITALS: BP 114/77
[2020-03-09 00:52] LABS: AMPHETAMINE SCREEN, URINE Positive (Negative); BARBITURATE SCREEN, URINE Negative (Negative); BENZODIAZEPINE SCREEN, URINE Negative (Negative); CANNABINOID SCREEN, URINE Positive (Negative); COCAINE SCREEN, URINE Positive (Negative); METHADONE SCREEN, URINE Negative (Negative); OPIATE SCREEN, URINE Negative (Negative)
[2020-03-09 05:44] LABS: BASOPHILS # (AUTO) 0.02 x10^3/uL (0-0.1); BASOPHILS % (AUTO) 0 % (0-1); EOSINOPHILS # (AUTO) 0.19 x10^3/uL (0-0.4); EOSINOPHILS % (AUTO) 4 % (1-7); LYMPHOCYTES # (AUTO) 1.76 x10^3/uL (1-3.4); LYMPHOCYTES % (AUTO) 34 % (22-44); MD NO; MEAN CORPUSCULAR HEMOGLOBIN 29.7 pg (27.5-34.5); MEAN CORPUSCULAR HGB CONC 32.5 g/dL (33.2-36.2); MEAN CORPUSCULAR VOLUME 91.3 fL (81-97); MEAN PLATELET VOLUME 8.7 fL (7.4-10.4); MONOCYTES % (AUTO) 4 % (2-9); NEUTROPHILS % (AUTO) 59 % (42-75); PLATELET COUNT 232 x10^3/uL (130-400); RED CELL DISTRIBUTION WIDTH 14.7 % (9.4-14.8)
[2020-03-09 05:47] LABS: CHOL/HDL RATIO 2.1; LDL/HDL RATIO 0.8 (0.5-3.0)
[2020-03-09] MEDS ORDERED: ASPIRIN 325 MG TABLET EC PO SCH (06:00)
[2020-03-09] MEDS ORDERED: REGADENOSON 0.4 MG/5 ML SYRINGE ONE (08:31)
[2020-03-09] MEDS: FAMOTIDINE 20 MG TABLET PO SCH (08:38)
[2020-03-09 10:18] VITALS: BP 95/60
== END 2020-03-09 16:17 | disposition home or self-care (01) ==
LOC: ED 11:30 → INTOOBSV 11:49 → EDIP 11:49 → ED 11:52 → 5SO 13:23
PROVIDERS: ADMIT Internal Medicine; ATTEND Hospitalist
DX: R07.9 Chest pain, unspecified (principal); F19.10 Other psychoactive substance abuse, uncomplicated; F17.200 Nicotine dependence, unspecified, uncomplicated; Z79.899 Other long term (current) drug therapy
CPT/HCPCS: 36415; 71045; 78452; 80053; 80061; 80307; 82140; 83036; 83735; 83880; 84100; 84439; 84443; 84484; 85025; 85651; 93005; 93017; 93306; 96372; 99285; A9502; G0378; J1650; J2785

== ENCOUNTER 2020-03-18 06:05 | Emergency (ER) | payer MEDICAID ==
[~2020-03-18] VITALS: Ht 172.7 cm; Wt 68.4 kg
--- NOTE | 2020-03-18 06:10 | NUR ---
pt BIB [facility] c/o CP since last nocs. per report, pt went to [facility] for evaluation of CP and was given a full workup. pt was D/C from he [facility] this AM and then called [facility] to bring him here for a second opinion. pt also states that he has pain o his R great toe hat he wants evaluated no resp. distress. no family at bedside
--- NOTE | 2020-03-18 06:15 | NUR ---
Dr. Keita at bedside for eval
[2020-03-18] MEDS ORDERED: MAALOX/HYOSCYAMINE/LIDOCAINE 45 ML BTL ONE (06:23)
[2020-03-18] MEDS ORDERED: MAALOX/HYOSCYAMINE/LIDOCAINE 45 ML BTL PO ONE (06:30)
--- NOTE | 2020-03-18 06:34 | NUR ---
pt has been medicated per order. warm blankets given and positioning fo comfort
--- NOTE | 2020-03-18 06:35 | NUR ---
records have been requested from [facility]
--- NOTE | 2020-03-18 07:00 | NUR ---
REPORT RECEIVED FROM HENRIQUE BAIRD. PT RESTING ON [employer] W/ CALL LIGHT IN REACH. RESP EVEN AND UNLABORED, JOAQUIN.
--- NOTE | 2020-03-18 07:00 | NUR ---
pt resting. EKG has been o bedside. report to Bre BAIRD
[2020-03-18 07:26] LABS: TROPONIN I < 0.015 ng/mL (0.000-0.045)
--- NOTE | 2020-03-18 07:30 | NUR ---
PT SLEEPING ON GURNEY, VSS, NADN. ALL TESTS RESULTED. PT IS UP FOR RECHECK AT THIS TIME.
[2020-03-18 08:18] VITALS: BP 100/65
--- NOTE | 2020-03-18 08:32 | NUR ---
Patient given discharge instructions and they have confirmed that they understand the instructions. Patient ambulatory with steady gait.
== END 2020-03-18 08:33 | disposition home or self-care (01) ==
LOC: ED 06:42
DX: K29.00 Acute gastritis without bleeding (principal); R07.89 Other chest pain
CPT/HCPCS: 36415; 84484; 93005; 99284

== ENCOUNTER 2020-03-19 08:47 | Emergency (ER) | payer MEDICAID ==
[~2020-03-19] VITALS: Ht 172.7 cm; Wt 75.0 kg
[2020-03-19 08:52] VITALS: BP 117/81
--- NOTE | 2020-03-19 09:17 | NUR ---
Juliette hoover in [facility] - 03/19/20 at 0917 by BETSY COMBINATION BUILDING INSPECTOR: PT TO ROOM FROM [place]
--- NOTE | 2020-03-19 09:18 | NUR ---
STUDIO SALES ASSOCIATE: PT IN RADIOLOGY, YELLING, "DONT TOUCH ME. SO YOU ARE REFUSING TO TAKE CARE OF ME" PT UNCOOPERATIVE WITH CARE, REFUSING CARE. PT ELECTED TO LEAVE. ESCORTED BY SECURITY.
== END 2020-03-19 09:38 | disposition left against medical advice (07) ==
LOC: ED 09:03
DX: R10.9 Unspecified abdominal pain (principal)
CPT/HCPCS: 99283

== ENCOUNTER 2020-05-01 09:49 | Emergency (ER) | payer MEDICAID, OTHER ==
[~2020-05-01] VITALS: Ht 172.7 cm; Wt 72.7 kg
[2020-05-01 09:58] VITALS: BP 110/66
--- NOTE | 2020-05-01 10:18 | NUR ---
SNUFF MAKER: PT TO ROOM FROM HEATHER NAVARRETE Addendum: 05/01/20 at 1019 by BETSY PT TO ROOM VIA W/C
== END 2020-05-01 11:31 | disposition home or self-care (01) ==
LOC: ED 10:48
DX: S90.111A Contusion of right great toe without damage to nail, initial encounter (principal); S90.121A Contusion of right lesser toe(s) without damage to nail, initial encounter; B35.1 Tinea unguium; Z90.49 Acquired absence of other specified parts of digestive tract; X58.XXXA Exposure to other specified factors, initial encounter; Y93.89 Activity, other specified; Y92.098 Other place in other non-institutional residence as the place of occurrence of the external cause; Y99.8 Other external cause status
CPT/HCPCS: 82962; 99283

== ENCOUNTER 2020-05-07 13:14 | Emergency (ER) | payer MEDICAID, OTHER ==
[~2020-05-07] VITALS: Ht 172.7 cm; Wt 72.6 kg
[2020-05-07] MEDS ORDERED: LIDOCAINE-MPF 1%, 5ML ONE ×2 (13:42→13:51)
[2020-05-07] MEDS ORDERED: LIDOCAINE-MPF 1%, 5ML INFIL ONE (14:00)
--- NOTE | 2020-05-07 14:04 | NUR ---
Pt has fungal infection on R big toe. PA at bedside for I/D
--- NOTE | 2020-05-07 14:24 | NUR ---
Wound dressed, ready for DC
[2020-05-07 14:28] VITALS: BP 101/43
== END 2020-05-07 14:36 | disposition home or self-care (01) ==
LOC: ED 13:41
DX: B35.1 Tinea unguium (principal); M79.671 Pain in right foot; Z90.89 Acquired absence of other organs
CPT/HCPCS: 11730; 99284

== ENCOUNTER 2020-05-08 17:07 | Emergency (ER) | payer MEDICAID ==
[~2020-05-08] VITALS: Ht 172.7 cm; Wt 72.8 kg
[2020-05-08 17:09] VITALS: BP 103/76
--- NOTE | 2020-05-08 18:09 | NUR ---
Patient given discharge instructions and they have confirmed that they understand the instructions. Patient ambulatory with steady gait.
== END 2020-05-08 18:10 | disposition home or self-care (01) ==
LOC: ED 17:33
DX: L60.0 Ingrowing nail (principal); F17.200 Nicotine dependence, unspecified, uncomplicated; Z90.49 Acquired absence of other specified parts of digestive tract
CPT/HCPCS: 99281; 99283

== ENCOUNTER 2020-05-18 21:56 | Emergency (ER) | payer MEDICAID, OTHER ==
[~2020-05-18] VITALS: Ht 172.7 cm; Wt 76.0 kg
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
--- NOTE | 2020-05-19 00:52 | NUR ---
PT RESTING IN BED, PT ON MONITOR WITH NO WANTS OR NEEDS AT THIS TIME. JEWEL SORTER WILL CONTINUE TO MONITOR PT CONDITION AND VITALS
[2020-05-19 00:53] VITALS: BP 133/84
--- NOTE | 2020-05-19 01:37 | NUR ---
ATTEMPED TO GET PT UP AND ROAD TEST, PT REFUSED TO GET OUT OF BED
== END 2020-05-19 02:40 | disposition home or self-care (01) ==
LOC: ED 22:26
DX: F10.220 Alcohol dependence with intoxication, uncomplicated (principal); F15.10 Other stimulant abuse, uncomplicated; Z72.9 Problem related to lifestyle, unspecified; Y90.9 Presence of alcohol in blood, level not specified
CPT/HCPCS: 99283

== ENCOUNTER 2020-05-26 00:15 | Emergency (ER) | payer MEDICAID, OTHER ==
[~2020-05-26] VITALS: Ht 177.8 cm; Wt 78.0 kg
--- NOTE | 2020-05-26 00:31 | NUR ---
PT BROUGHT BACK FROM TRIAGE DROPPED OFF IN TAXI ALOC, RESPONDS WITH MOVEMENT TO PAINFUL STIMULI, NON VERBAL. BG AT TRIAGE WNL, VSS. PLACED ON DRAWER IN JACQUARD LOOM, CONT PULSE OX. IV STARTED BLOODS DRAWN AND SENT.
--- NOTE | 2020-05-26 00:49 | NUR ---
NO S/S OF ANY TRAUMA, PT WAS PICKED UP FROM [facility]. WITH PAINFUL STIMULI PT RESPONDS WITH GRUNT AND WHEN TOLD TO OPEN EYES FOLLOWED COMMANDS. SIDE RAILS UP, CALL LIGHT IN REACH.
[2020-05-26 01:08] LABS: BASOPHILS # (AUTO) 0.06 x10^3/uL (0-0.1); BASOPHILS % (AUTO) 1 % (0-1); EOSINOPHILS # (AUTO) 0.14 x10^3/uL (0-0.4); EOSINOPHILS % (AUTO) 2 % (1-7); LYMPHOCYTES # (AUTO) 1.99 x10^3/uL (1-3.4); LYMPHOCYTES % (AUTO) 33 % (22-44); MD NO; MEAN CORPUSCULAR HEMOGLOBIN 29.3 pg (27.5-34.5); MEAN CORPUSCULAR HGB CONC 31.5 g/dL (33.2-36.2); MEAN CORPUSCULAR VOLUME 93.1 fL (81-97); MEAN PLATELET VOLUME 8.9 fL (7.4-10.4); MONOCYTES # (AUTO) 0.31 x10^3/uL (0.2-0.8); MONOCYTES % (AUTO) 5 % (2-9); NEUTROPHILS # (AUTO) 3.48 x10^3/uL (1.8-6.8); NEUTROPHILS % (AUTO) 58 % (42-75); PLATELET COUNT 220 x10^3/uL (130-400); RED BLOOD COUNT 4.95 x10^6/uL (4.38-5.82); RED CELL DISTRIBUTION WIDTH 14.5 % (9.4-14.8)
[2020-05-26 01:09] LABS: ALANINE AMINOTRANSFERASE 46 U/L (12-78); ALBUMIN 3.5 g/dL (3.4-5.0); ANION GAP 4 mmol/L (5-15); CALCIUM 8.8 mg/dL (8.5-10.1); CHLORIDE 113 mmol/L (98-107); CREATININE 1.12 mg/dL (0.7-1.3)
[2020-05-26 01:12] LABS: ALKALINE PHOSPHATASE 54 U/L (45-117); TOTAL PROTEIN 7.1 g/dL (6.4-8.2)
--- NOTE | 2020-05-26 01:49 | NUR ---
OPENS EYES WITH STIMULI, STILL NOT TALKING, RR EQUAL AND UNLABORED. WILL CONTINUE TO MONITOR.
--- NOTE | 2020-05-26 02:02 | NUR ---
PT OPENS EYES WITH STIMULI, SHAKES HEAD YES WHEN ASKED IF WAS DRINKING ETOH TONIGHT, SHAKES HEAD NO WHEN ASKED FOR URINE. URINAL LEFT AT BEDSIDE.
--- NOTE | 2020-05-26 03:32 | NUR ---
PT MORE RESPONSIVE ANSWERS YES OR NO BY SHAKING HEAD, PT AWARE OF SURROUNDINGS AND WHEN SOMEONE ENTERS AND LEAVES ROOM. VSS. WILL CONTINUE TO MONITOR.
[2020-05-26 05:29] VITALS: BP 110/74
--- NOTE | 2020-05-26 05:29 | NUR ---
PT UP AMBULATES STEADY GAIT WITH NO ASSIST. PT ANSWERS "NO IM COLD" AND FOLLOWS COMMANDS BUT OTHERWISE REFUSES TO ANSWER OTHER QUESTIONS. VSS. INFORMED ERP OF THIS UPDATE.
--- NOTE | 2020-05-26 06:13 | NUR ---
PT GIVEN DISCHARGE INSTRUCTIONS. PT NOW VERBALIZING MULTIPLE COMPLAINTS AND REFUSING TO LEAVE. RN EXPLAINED TO PT THAT ERP HAS EVALUATED HIM AND HE IS SAFE FOR DISCHARGE. MD UPDATED AND AGREES WITH DISCHARGE. SECURITY CALLED TO ASSIST WITH DISCHARGE. WHEN RN ATTEMPTED TO REMOVE CARDIAC LEADS AND PIV. PT TOLD RN NOT TO TOUCH HIM. CHARGE UPDATED AND WILL REMOVE PIV.
== END 2020-05-26 06:22 | disposition home or self-care (01) ==
LOC: ED 01:25
DX: R41.82 Altered mental status, unspecified (principal); F15.129 Other stimulant abuse with intoxication, unspecified; Z72.9 Problem related to lifestyle, unspecified; R94.31 Abnormal electrocardiogram [ECG] [EKG]; F17.200 Nicotine dependence, unspecified, uncomplicated; Z90.89 Acquired absence of other organs
CPT/HCPCS: 36415; 80053; 80307; 82962; 85025; 93005; 99284

== ENCOUNTER 2020-08-13 01:56 | Emergency (ER) | payer OTHER, MEDICAID ==
[~2020-08-13] VITALS: Ht 172.7 cm; Wt 73.8 kg
[2020-08-13] MEDS ORDERED: ACETAMINOPHEN 325 MG TABLET PO ONE (02:30)
[2020-08-13] MEDS ORDERED: ACETAMINOPHEN 325 MG TABLET ONE (02:52)
[2020-08-13 02:53] LABS: BASOPHILS % (AUTO) 1 % (0-1); EOSINOPHILS % (AUTO) 2 % (1-7); LYMPHOCYTES % (AUTO) 33 % (22-44); MD NO; MEAN CORPUSCULAR HEMOGLOBIN 29.8 pg (27.5-34.5); MEAN CORPUSCULAR HGB CONC 32.8 g/dL (33.2-36.2); MEAN PLATELET VOLUME 8.6 fL (7.4-10.4); MONOCYTES % (AUTO) 7 % (2-9); NEUTROPHILS % (AUTO) 56 % (42-75); PLATELET COUNT 235 x10^3/uL (130-400); RED BLOOD COUNT 5.15 x10^6/uL (4.38-5.82); RED CELL DISTRIBUTION WIDTH 14.4 % (9.4-14.8)
[2020-08-13 03:02] LABS: ALANINE AMINOTRANSFERASE 29 U/L (12-78); ALBUMIN 3.3 g/dL (3.4-5.0); ANION GAP 4 mmol/L (5-15); CALCIUM 8.7 mg/dL (8.5-10.1); CHLORIDE 108 mmol/L (98-107); CREATININE 0.97 mg/dL (0.7-1.3)
[2020-08-13 03:04] LABS: ALKALINE PHOSPHATASE 64 U/L (45-117); BILIRUBIN,TOTAL 0.6 mg/dL (0.2-1.0); TOTAL PROTEIN 6.9 g/dL (6.4-8.2)
--- NOTE | 2020-08-13 03:04 | NUR ---
BREAK RN: PT MEDICATED FOR PAIN. PT SLEEPING IN NAD. VSS. CALL LIGHT IN REACH
[2020-08-13 03:27] VITALS: BP 115/82
== END 2020-08-13 03:30 | disposition home or self-care (01) ==
LOC: ED 02:34
DX: R10.84 Generalized abdominal pain (principal); F17.210 Nicotine dependence, cigarettes, uncomplicated; Z90.49 Acquired absence of other specified parts of digestive tract
CPT/HCPCS: 36415; 80053; 83690; 85025; 99283

== ENCOUNTER 2020-08-22 20:04 | Emergency (ER) | payer OTHER, MEDICAID ==
[~2020-08-22] VITALS: Ht 172.7 cm; Wt 70.7 kg
--- NOTE | 2020-08-22 21:05 | NUR ---
ATTEMPTED TO PERFORM AN EKG ON PT. PT WAS COMBATIVE AND ARGUMENTATIVE WHILE ATTEMPTING TO START EKG. PT DID NOT WANT EKG IN TRIAGE.
[2020-08-22 21:19] LABS: ALANINE AMINOTRANSFERASE 28 U/L (12-78); ALBUMIN 3.3 g/dL (3.4-5.0); ANION GAP 3 mmol/L (5-15); CALCIUM 8.8 mg/dL (8.5-10.1); CHLORIDE 109 mmol/L (98-107); CREATININE 0.86 mg/dL (0.7-1.3)
[2020-08-22 21:20] LABS: BASOPHILS % (AUTO) 1 % (0-1); EOSINOPHILS % (AUTO) 2 % (1-7); LYMPHOCYTES % (AUTO) 30 % (22-44); MEAN CORPUSCULAR HEMOGLOBIN 29.8 pg (27.5-34.5); MEAN CORPUSCULAR HGB CONC 32.7 g/dL (33.2-36.2); MEAN PLATELET VOLUME 8.6 fL (7.4-10.4); MONOCYTES % (AUTO) 7 % (2-9); NEUTROPHILS % (AUTO) 60 % (42-75); PLATELET COUNT 220 x10^3/uL (130-400); RED BLOOD COUNT 4.98 x10^6/uL (4.38-5.82); RED CELL DISTRIBUTION WIDTH 14.4 % (9.4-14.8)
[2020-08-22 21:23] LABS: ALKALINE PHOSPHATASE 60 U/L (45-117); BILIRUBIN,TOTAL 0.9 mg/dL (0.2-1.0); TOTAL PROTEIN 6.8 g/dL (6.4-8.2); TROPONIN I < 0.015 ng/mL (0.000-0.045)
[2020-08-22 21:28] LABS: MD NO
--- NOTE | 2020-08-22 22:14 | NUR ---
Patient refusing blood work at this time.
--- NOTE | 2020-08-22 22:26 | NUR ---
PT TO RM FROM LOBBY
--- NOTE | 2020-08-22 22:45 | NUR ---
pt here for luq pain with nausea. vss. pt refused ekg in triage. md to see.
[2020-08-22 23:28] VITALS: BP 105/79
--- NOTE | 2020-08-22 23:28 | NUR ---
pt given discharge instructions. pt sleeping and refues to get up. pt offera taxi voucher but pt doesnt know an address to go to. pt went back to sleep after discharge instructions explained. Security called to assist with discharge
== END 2020-08-22 23:32 | disposition home or self-care (01) ==
LOC: ED 23:00
DX: R10.32 Left lower quadrant pain (principal); Z90.89 Acquired absence of other organs
CPT/HCPCS: 36415; 71045; 80053; 83690; 84484; 85025; 99284

== ENCOUNTER 2020-11-13 09:41 | Emergency (ER) | payer MEDICAID, OTHER ==
[~2020-11-13] VITALS: Ht 172.7 cm; Wt 68.0 kg
--- NOTE | 2020-11-13 09:54 | NUR ---
PATIENT BIB EMS WITH CHIEF C/O METH ABUSE. PER EMS PATIENT WOULD LIKE TO GET CLEAN FROM METH, LAST USE WAS YESTERDAY EVENING, PATIENT SMOKES METH "EVERY 40 DAYS" PER EMS. VSS EN ROUTE, NO INTERVENTIONS BY EMS. UPON ASSESSMENT PATIENT STATES "I'M COMING DOWN FROM METH." NADN, CALL LIGHT WITHIN REACH.
--- NOTE | 2020-11-13 10:08 | NUR ---
SBAR HAND-OFF REPORT RECEIVED FROM OLI MORENO. ASSUMING CARE OF PATIENT. WILY BUTCHER AT BEDSIDE.
--- NOTE | 2020-11-13 11:52 | NUR ---
STEF BAIRES ORDERED AGAIN THE FIRST ONE DIDN'T ARRIVE.
[2020-11-13 11:57] VITALS: BP 134/85
--- NOTE | 2020-11-13 13:02 | NUR ---
CALLED [facility] AND ARRANGED AN APPOINTMENT FOR PATIENT TOMORROW WITH PSYCHIATRY. [facility] AND THEY STATED THAT THEY WILL TAKE PATIENT IN THEIR INPATIENT TREATMENT PROGRAM IF HE IS WILLING TO STAY 3-5 DAYS. PT AGREES.
--- NOTE | 2020-11-13 13:44 | NUR ---
Patient given discharge instructions and they have confirmed that they understand the instructions. Patient ambulatory with steady gait.
== END 2020-11-13 13:45 | disposition home or self-care (01) ==
LOC: ED 10:25
DX: F15.10 Other stimulant abuse, uncomplicated (principal)
CPT/HCPCS: 82962; 99283

== ENCOUNTER 2020-11-20 20:03 | Emergency (ER) | payer MEDICAID ==
[~2020-11-20] VITALS: Ht 172.7 cm; Wt 50.0 kg
[2020-11-20 20:18] VITALS: BP 128/64
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
--- NOTE | 2020-11-20 20:58 | NUR ---
PT TO BE DISCHARGED. PT REFUSING TO CHANGE INTO HIS CLOTHES AND STATES THAT HE NEEDS TO NEW CLOTHES AND WE NEED TO GET RID OF HIS CLOTHES BECAUSE THEY ARE COVERED IN SIN. NEW CLOTHES PROVIDED FROM CLOTHES CLOSET. PT STATES THAT HE NEEDS TO GO SOMEWHERE TO DETOX. LIST OF RESOURSES PROVIDED. PROVIDER MADE AWARE OF SITUATION. PT EDUCATED THAT HE IS BEING DISCHARGED AND PROVIDER HAS ASSESSED HIM FOR ANY LIOFE THREATNING EMERGENCIES. PT EDUCATED THAT SECURITY WILL BE CALLED IF HE REFUSES TO LEAVE.
--- NOTE | 2020-11-20 21:20 | NUR ---
PT IS AXOX4 AND REFUSING TO CHANGE OUT OF HOSPITAL GOWN. PT REFUSING TO GET DRESSED IN ANY PROVIDED CLOTHES. SECURITY IS CALLED TO HELP WITH SITUATION. PT REFUSES TO GET DRESSED. REFUSES OFFER OF BLANKET OR SHEET TO COVER UP. PT IS DISCHARGED WITH CAB VOUCHER IN GOWN AND HIS OWN JACKET. PT DOES NOT WANT HIS BELONGINGS AND WANTS STAFF TO SEND HIM TO DETOX. PT WAS EDUCATED THAT RESOURSES WERE GIVEN. PT BECOMES AGREEABLE TO CAB VOUCHER THEN STATES HE WOULD LIKE TO BE SENT TO [facility]. PROVIDER MADE AWARE OF SITUATION. PROVIDER WENT OUTSIDE UNDER CANOPY TO SPEAK WITH PT. PT CONTINUES TO DECLINE ANY CLOTHES, SHEETS, OR ANY OTHER ASSISTANCE FROM STAFF. PT CALLS Neumitra FROM PERSONAL CELL PHONE AND WAS ABLE TO GIVE HOSPITAL AND PHYSICAL ADDRESS TO TAKE HIM. CHARGE NURSE IS AWARE OF SITUATION AND HOUSE SUP WAS MADE AWARE. [employer] NON EMERGENT POLICE LINE CALLED AND SITUATION WAS REPORTED.
== END 2020-11-20 22:00 | disposition home or self-care (01) ==
LOC: ED 21:54
DX: F15.159 Other stimulant abuse with stimulant-induced psychotic disorder, unspecified (principal); F10.10 Alcohol abuse, uncomplicated; F17.210 Nicotine dependence, cigarettes, uncomplicated; Z90.89 Acquired absence of other organs; Z72.9 Problem related to lifestyle, unspecified; Y90.0 Blood alcohol level of less than 20 mg/100 ml
CPT/HCPCS: 99283; 99406

== ENCOUNTER 2021-03-05 01:47 | Emergency (ER) | payer MEDICAID ==
[~2021-03-05] VITALS: Ht 172.7 cm; Wt 70.0 kg
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
--- NOTE | 2021-03-05 02:08 | NUR ---
PT TO IMAGING
[2021-03-05] MEDS ORDERED: HYDROcodone/APAP 5/325 TABLET PO ONE (02:30)
[2021-03-05] MEDS ORDERED: HYDROcodone/APAP 5/325 TABLET ONE (02:31)
--- NOTE | 2021-03-05 05:02 | NUR ---
PT SITTING UPRIGHT ON GURNEY, PROVIDED URINAL PER REQUEST. PT DENIES ANY ADDITIONAL NEEDS AT THIS TIME. CALL LIGHT AND BELONGINGS WITHIN REACH
--- NOTE | 2021-03-05 05:55 | NUR ---
DR. HOOK AT BEDSIDE
--- NOTE | 2021-03-05 06:51 | NUR ---
Patient given discharge instructions and they have confirmed that they understand the instructions. Patient ambulatory with use of personal crutches. pt to d/c desk via wheelchair. Pt calling [facility] for ride home.
[2021-03-05 06:52] VITALS: BP 108/62
== END 2021-03-05 06:54 | disposition home or self-care (01) ==
LOC: ED 01:55
DX: S02.642A Fracture of ramus of left mandible, initial encounter for closed fracture (principal); M25.572 Pain in left ankle and joints of left foot; Z90.89 Acquired absence of other organs; X58.XXXA Exposure to other specified factors, initial encounter; Y93.89 Activity, other specified; Y92.410 Unspecified street and highway as the place of occurrence of the external cause; Y99.8 Other external cause status
CPT/HCPCS: 70100; 70486; 99285

== ENCOUNTER 2021-04-09 03:50 | Emergency (ER) | payer MEDICAID ==
[~2021-04-09] VITALS: Ht 172.7 cm; Wt 72.7 kg
--- NOTE | 2021-04-09 03:50 | NUR ---
PT BIBA FOR HICCUPS FOR 4 DAYS, PT STATES THAT HE CAN EAT THINGS AND SWALLOW PROPERLY, PT STATES THE HICCUPS COME AND GO, PT STATES THAT HE FEELS LIKE SOMETHING IS DISLODGED IN HIS ESOPHOGUS, PT A/OX4
[2021-04-09 04:34] LABS: BASOPHILS % (AUTO) 1 % (0-1); EOSINOPHILS % (AUTO) 4 % (1-7); LYMPHOCYTES % (AUTO) 25 % (22-44); MEAN CORPUSCULAR HGB CONC 33.4 g/dL (33.2-36.2); MEAN PLATELET VOLUME 8.5 fL (7.4-10.4); MONOCYTES % (AUTO) 9 % (2-9); NEUTROPHILS % (AUTO) 61 % (42-75); PLATELET COUNT 192 x10^3/uL (130-400); RED BLOOD COUNT 4.55 x10^6/uL (4.38-5.82); RED CELL DISTRIBUTION WIDTH 14.9 % (9.4-14.8)
[2021-04-09 04:43] LABS: ALBUMIN 2.8 g/dL (3.4-5.0); ANION GAP 3 mmol/L (5-15); CALCIUM 8.8 mg/dL (8.5-10.1); CHLORIDE 108 mmol/L (98-107)
[2021-04-09 04:49] LABS: CREATININE 0.91 mg/dL (0.7-1.3); TROPONIN I < 0.015 ng/mL (0.000-0.045)
--- NOTE | 2021-04-09 05:18 | NUR ---
PT LAYING IN BED, A/OX4, ALL NEEDS IN REACH, CALL LIGHT IN REACH, NAD AT THIS TIME, VSS
[2021-04-09] MEDS ORDERED: MAALOX/HYOSCYAMINE/LIDOCAINE 45 ML BTL ONE (06:05)
[2021-04-09 06:13] VITALS: BP 112/72
[2021-04-09] MEDS ORDERED: MAALOX/HYOSCYAMINE/LIDOCAINE 45 ML BTL PO ONE (06:30)
== END 2021-04-09 06:25 | disposition home or self-care (01) ==
LOC: ED 03:58
DX: K21.00 Gastro-esophageal reflux disease with esophagitis, without bleeding (principal); R07.89 Other chest pain; R06.6 Hiccough; R94.31 Abnormal electrocardiogram [ECG] [EKG]; E11.9 Type 2 diabetes mellitus without complications; Z90.89 Acquired absence of other organs; Z87.891 Personal history of nicotine dependence
CPT/HCPCS: 36415; 71045; 80048; 82040; 84484; 85025; 93005; 99285